=== PATIENT | male | born 1960 | race Caucasian/White ===

== ENCOUNTER 2016-05-16 14:42 | Emergency (ER) | payer MEDICAID, OTHER ==
[~2016-05-16] VITALS: Ht 177.8 cm; Wt 85.3 kg
[~2016-05-16 14:42] MED LIST: BACTRIM DS TAB1 EAC1 ORAL; IMODIUM2 MG ORAL; METOPROLOL TART50 MG PO; NORCO 10/3251 EA ORAL; PERPHENAZINE2 MG PO; PLAVIX75 MG ORAL; SIMVASTATIN40 MG PO
[2016-05-16] MEDS ORDERED: ZOCOR5 MG ORAL (15:07)
[2016-05-16] MEDS ORDERED: GLIPIZIDE XL10 MG ORAL (15:07)
[2016-05-16] MEDS ORDERED: METFORMIN HCL500 M1 ORAL (15:07)
[2016-05-16] MEDS ORDERED: FOLIC ACID1 MG ORAL (15:08)
[2016-05-16] MEDS ORDERED: PREDNISONE20 M1 PO (15:08)
[2016-05-16] MEDS ORDERED: PLAQUENIL200 MG ORAL (15:08)
[2016-05-16] MEDS ORDERED: METHOTREXATE2.5 MG PO (15:08)
[2016-05-16] MEDS ORDERED: PLAVIX75 MG ORAL (15:09)
[2016-05-16] MEDS ORDERED: LOPRESSOR HCT1 EAC3 ORAL (15:09)
[2016-05-16 15:14] VITALS: BP 148/79
[2016-05-16 16:20] LABS: BASOPHILS % (AUTO) 0.8 % (0.0-2.0); EOSINOPHILS % (AUTO) 1.9 % (0.0-3.0); LYMPHOCYTES % (AUTO) 18.7 % (20.0-45.0); MEAN CORPUSCULAR HGB CONC 32.6 G/DL (32.0-36.0); MEAN CORPUSCULAR VOLUME 98 FL (80-99); MEAN PLATELET VOLUME 6.7 FL (6.5-10.1); MONOCYTES % (AUTO) 5.9 % (1.0-10.0); NEUTROPHILS % (AUTO) 72.7 % (45.0-75.0); PLATELET COUNT 313 K/UL (150-450); WHITE BLOOD COUNT 10.1 K/UL (4.8-10.8)
[2016-05-16 16:27] LABS: ALANINE AMINOTRANSFERASE 21 U/L (3-41); ALBUMIN/GLOBULIN RATIO 1.4 (1.0-2.7); ANION GAP 17 (5-15); ASPARTATE AMINO TRANSFERASE 15 U/L (5-40); CALCIUM 9.1 mg/dL (8.6-10.2); CARBON DIOXIDE 21 mEQ/L (20-30); CHLORIDE 101 mEQ/L (98-107); CREATININE 0.9 mg/dL (0.7-1.2); GLOMERULAR FILTRATION RATE > 60 mL/min (>60); HEMOLYSIS 8; LIPASE 58 U/L (< 60); POTASSIUM 4.4 mEQ/L (3.4-4.9); SODIUM 139 mEQ/L (135-145); TOTAL PROTEIN 7.1 g/dL (6.6-8.7)
--- NOTE | 2016-05-16 16:30 | Emergency Room Report ---
History of Present Illness General Chief Complaint: General Complaint Source: Patient Present Illness HPI 56-year-old male presents emergency department complaining of black stool x2 weeks in addition to burning epigastric sensation after eating food. Patient denies pain or burning sensation at times other than eating. Patient denies nausea, vomiting, fevers, chills patient denies bright red blood in the stool patient reports mild straining however has a bowel movement daily. he states he 's been taking Pepto-Bismol for a little of it 2 weeks to manage his symptoms. Patient denies taking other medications for burning sensation. Patient states he has had intermittent acid reflux in the past however has never lasted this long. Patient denies chest pain or weakness. Patient reported short episode of dizziness today after straining to use the restroom. Patient states it resolved after 10 seconds denies fall or loss of consciousness. he denies abdominal distention. Patient reports cigarette use denies alcohol or illicit drugs. Denies CP, Palpitations, LOC, AMS, dizziness, Changes in Vision, Sensation, paresthesias, or a sudden severe headache. Allergies: Coded Allergies: No Known Allergies (Unverified , 01/07/12) Patient History Past Medical History: see triage record Past Surgical History: none Pertinent Family History: none Immunizations: UTD Reviewed Nursing Documentation: PMH: Agreed, PSxH: Agreed Nursing Documentation-PMH Past Medical History: No History, Except For Hx Cardiac Problems: Yes - Rheumatoid arthritis Hx Hypertension: Yes Hx Diabetes: Yes History Of Psychiatric Problem: Yes - Depression, Anxiety, Psychosis Review of Systems All Other Systems: negative except mentioned in HPI Physical Exam Vital Signs Date Time Temp Pulse Resp B/P Pulse Ox O2 Delivery O2 Flow Rate FiO2 05/16/16 15:00 98.1 95 14 153/81 97 Room Air Sp02 EP Interpretation: reviewed, normal General Appearance: no apparent distress, alert, GCS 15, non-toxic Head: normocephalic, atraumatic Eyes: bilateral eye PERRL, bilateral eye normal inspection ENT: hearing grossly normal, normal pharynx, no angioedema, normal voice Neck: full range of motion, supple/symm/no masses Respiratory: chest non-tender, lungs clear, normal breath sounds, speaking full sentences Cardiovascular #1: regular rate, rhythm, no edema Gastrointestinal: normal bowel sounds, non tender, soft, non-distended, no guarding, no rebound Rectal: deferred, other - refused FOB exam Genitourinary: normal inspection, no CVA tenderness Musculoskeletal: back normal, gait/station normal, normal range of motion, non- tender, no calf tenderness Neurologic: alert, oriented x3, responsive, motor strength/tone normal, sensory intact, speech normal Psychiatric: judgement/insight normal, memory normal, mood/affect normal, no suicidal/homicidal ideation Skin: normal color, no rash, warm/dry, well hydrated Lymphatic: no adenopathy Medical Decision Making PA Attestation Dr. Kamara is my supervising Physician whom patient management has been discussed with. Diagnostic Impression: Primary Impression: GERD (gastroesophageal reflux disease) Qualified Codes: K21.9 - Gastro-esophageal reflux disease without esophagitis ER Course Pt. presents to the ED c/o black stools x 2 weeks s/p taking pepto bismol multiple times daily to subside burning sensation brought on with meals. Ddx considered but are not limited to GERD, Diverticulitis, acute appy, diarrhea ,UC, PUD, GE, pancreatitis, gallstone, Cardiac/LA Vital signs: are WNL, pt. is afebrile H&PE are most consistent with GERD/ Ulcer ORDERS: -CBC, CMP, lipase: WNL / unremarkable: No elevations in liver or pancreatic enzymes no evidence of acute blood loss.I do not suspect Cardiac pathology at this time due to HPI, and pt.s PE non tachycardic, non-tachypneic, NAD. ED INTERVENTIONS: - zantac 150mg -Discussed with this patient that I do not suspect acute GI bleed at this time based on laboratory work in addition to history of present illness discussed with patient that side effect of Pepto-Bismol is dark colored stools and that he can find this information written on the bottle. -D/w patient that I believe he is stable for close outpatient followup and should make an appointment with his primary care provider who can evaluate him fully or just medications as needed may require GI specialist evaluation. DISCHARGE: At this time pt. is stable for d/c to home. Will provide printed patient care instructions, and any necessary prescriptions. Care plan and follow up instructions have been discussed with the patient prior to discharge. Labs Test 05/16/16 15:45 White Blood Count 10.1 K/UL (4.8-10.8) Red Blood Count 4.80 M/UL (4.70-6.10) Hemoglobin 15.3 G/DL (14.2-18.0) Hematocrit 47.1 % (42.0-52.0) Mean Corpuscular Volume 98 FL (80-99) Mean Corpuscular Hemoglobin 32.0 PG (27.0-31.0) Mean Corpuscular Hemoglobin Concent 32.6 G/DL (32.0-36.0) Red Cell Distribution Width 15.0 % (11.6-14.8) Platelet Count 313 K/UL (150-450) Mean Platelet Volume 6.7 FL (6.5-10.1) Neutrophils (%) (Auto) 72.7 % (45.0-75.0) Lymphocytes (%) (Auto) 18.7 % (20.0-45.0) Monocytes (%) (Auto) 5.9 % (1.0-10.0) Eosinophils (%) (Auto) 1.9 % (0.0-3.0) Basophils (%) (Auto) 0.8 % (0.0-2.0) Sodium Level 139 mEQ/L (135-145) Potassium Level 4.4 mEQ/L (3.4-4.9) Chloride Level 101 mEQ/L (98-107) Carbon Dioxide Level 21 mEQ/L (20-30) Anion Gap 17 (5-15) Blood Urea Nitrogen 19 mg/dL (7-23) Creatinine 0.9 mg/dL (0.7-1.2) Estimat Glomerular Filtration Rate > 60 mL/min (>60) Glucose Level 242 mg/dL (74-106) Calcium Level 9.1 mg/dL (8.6-10.2) Total Bilirubin 0.2 mg/dL (0.0-1.2) Aspartate Amino Transf (AST/SGOT) 15 U/L (5-40) Alanine Aminotransferase (ALT/SGPT) 21 U/L (3-41) Alkaline Phosphatase 98 U/L (40-129) Total Protein 7.1 g/dL (6.6-8.7) Albumin 4.2 g/dL (3.5-5.2) Globulin 2.9 g/dL Albumin/Globulin Ratio 1.4 (1.0-2.7) Lipase 58 U/L (< 60) Last Vital Signs Date Time Temp Pulse Resp B/P Pulse Ox O2 Delivery O2 Flow Rate FiO2 05/16/16 15:14 98.2 97 13 148/79 98 Room Air Disposition: HOME, SELF-CARE Condition: Stable Scripts Ranitidine Hcl* (ZANTAC*) 150 Mg Tablet 150 MG ORAL TWICE A DAY for 30 Days, #60 TAB Prov: Kelly Quintanilla 05/16/16 Referrals: [facility],REFERRING (PCP) Patient Instructions: Gastroesophageal Reflux Disease, Adult Additional Instructions: Take medications as directed. Follow up with PCP in 3-5 days Return sooner to ED if new symptoms occur, or current symptoms become worse. Kelly Quintanilla May 16, 2016 16:30
[2016-05-16] MEDS ORDERED: ZANTAC150 MG ORAL (16:31)
[2016-05-16 16:51] VITALS: BP_SYST 146; BP_SYST 148; BP_DIAS 79; BP_DIAS 82
== END 2016-05-16 16:52 | disposition home or self-care (01) ==
LOC: EMR 15:37
DX: K21.9 Gastro-esophageal reflux disease without esophagitis (principal); R19.5 Other fecal abnormalities; E11.9 Type 2 diabetes mellitus without complications; I10 Essential (primary) hypertension; M06.9 Rheumatoid arthritis, unspecified; F32.9 Major depressive disorder, single episode, unspecified; F41.9 Anxiety disorder, unspecified; F29 Unspecified psychosis not due to a substance or known physiological condition
CPT/HCPCS: 36415; 80053; 83690; 85025; 99283

== ENCOUNTER 2016-09-19 17:08 | Emergency (ER) | payer OTHER ==
[~2016-09-19] VITALS: Ht 180.3 cm; Wt 83.9 kg
[~2016-09-19 17:08] MED LIST changes: +FOLIC ACID1 MG ORAL; +GLIPIZIDE XL10 MG ORAL; +LOPRESSOR HCT1 EAC3 ORAL; +METFORMIN HCL500 M1 ORAL; +METHOTREXATE2.5 MG PO; +PLAQUENIL200 MG ORAL; +PREDNISONE20 M1 PO; +ZANTAC150 MG ORAL; +ZOCOR5 MG ORAL
[2016-09-19 17:19] VITALS: BP 112/62
[2016-09-19] MEDS ORDERED: ROBAXIN-750750 MG PO (17:33)
[2016-09-19] MEDS ORDERED: IBUPROFEN600 MG ORAL (17:33)
[2016-09-19 18:04] VITALS: BP 103/72
--- NOTE | 2016-09-19 20:54 | Emergency Room Report ---
History of Present Illness General Chief Complaint: Pain Source: Patient Present Illness HPI The patient is a 56 old male presenting with left groin pain x 5 days. He states pain is an 8/10 dull ache and does not radiate. Pain worse with movement of the leg. Denies any known injury. He denies any previous injury. he has not tried any medications. He denies any other symptoms including nausea , vomiting, fever, chills, dysuria, penile discharge, testicular pain, rash, diarrhea, constipation, abdominal pain, numbness or tingling Allergies: Coded Allergies: No Known Allergies (Unverified , 01/07/12) Patient History Past Medical History: see triage record Pertinent Family History: none Reviewed Nursing Documentation: PMH: Agreed, PSxH: Agreed Nursing Documentation-PMH Hx Cardiac Problems: Yes - Rheumatoid arthritis Hx Hypertension: Yes Hx Diabetes: Yes Review of Systems All Other Systems: negative except mentioned in HPI Physical Exam Vital Signs Date Time Temp Pulse Resp B/P Pulse Ox O2 Delivery O2 Flow Rate FiO2 09/19/16 17:12 97.9 85 17 82/58 99 Room Air Sp02 EP Interpretation: reviewed, normal General Appearance: no apparent distress, alert, GCS 15, non-toxic Head: normocephalic, atraumatic Eyes: bilateral eye PERRL, bilateral eye normal inspection ENT: hearing grossly normal, normal pharynx, no angioedema, normal voice Gastrointestinal: normal bowel sounds, non tender, soft, non-distended, no guarding, no rebound Genitourinary: normal inspection, no CVA tenderness Musculoskeletal: normal inspection, back normal, normal range of motion, tender - TTP over the L inguinal region Neurologic: alert, oriented x3, responsive, motor strength/tone normal, sensory intact, speech normal Psychiatric: judgement/insight normal, memory normal, mood/affect normal, no suicidal/homicidal ideation Skin: normal color, no rash, warm/dry, well hydrated Lymphatic: no adenopathy Medical Decision Making PA Attestation Dr. Kamara is my supervising physician. Patient management was discussed with my supervising physician Diagnostic Impression: Primary Impression: Strain of left inguinal muscle Qualified Codes: S39.013A - Strain of muscle, fascia and tendon of pelvis, initial encounter ER Course The patient is a 56 old male presenting with left groin pain x 5 days Differential diagnoses considered but not limited to: Muscle strain, fracture, anemia, abscess, among others Physical exam: No apparent distress Abdomen is soft and nontender. Normal bowel sounds. Nondistended There is tenderness to palpation over the left inguinal region only. No edema or erythema. Full active range of motion of the hip. Normal gait unremarkable The patient will be discharged home is given a prescription for Motrin and Robaxin. ER precautions given Last Vital Signs Date Time Temp Pulse Resp B/P Pulse Ox O2 Delivery O2 Flow Rate FiO2 09/19/16 18:04 82 16 103/72 98 Room Air 09/19/16 17:12 97.9 Status: improved Disposition: HOME, SELF-CARE Condition: Improved Scripts Methocarbamol* (ROBAXIN-750*) 750 Mg Tablet 750 MG PO TID, #21 TAB 0 Refills Prov: SOLEDAD VARELA 09/19/16 Ibuprofen* (MOTRIN*) 600 Mg Tablet 600 MG ORAL Q8H Y for For Pain, #30 TAB 0 Refills Prov: SOLEDAD VARELA 09/19/16 Referrals: [facility],REFERRING (PCP) Patient Instructions: Muscle Strain Additional Instructions: I discussed my findings with the patient. All questions and concerns have been answered. Treatment and medication compliance have been addressed. I advised the patient that they need to follow up with PMD in 3-5 days. Return to ED if pain remains or worsens, numbness or tingling occurs, new rash is noticed, fever is noticed, or if needed for any reason. Patient verbalized understanding of discharge instructions. SOLEDAD VARELA September 19, 2016 20:53
== END 2016-09-19 18:09 | disposition home or self-care (01) ==
LOC: EMR 17:33
DX: S39.011A Strain of muscle, fascia and tendon of abdomen, initial encounter (principal); X58.XXXA Exposure to other specified factors, initial encounter; Y92.89 Other specified places as the place of occurrence of the external cause; E11.9 Type 2 diabetes mellitus without complications; I10 Essential (primary) hypertension; M06.9 Rheumatoid arthritis, unspecified
CPT/HCPCS: 99284

== ENCOUNTER 2017-07-06 18:25 | Emergency (ER) | payer OTHER ==
[~2017-07-06] VITALS: Ht 180.3 cm; Wt 81.6 kg
[~2017-07-06 18:25] MED LIST changes: +IBUPROFEN600 MG ORAL; +ROBAXIN-750750 MG PO
[2017-07-06 18:49] VITALS: BP 108/72
--- NOTE | 2017-07-06 19:12 | Emergency Room Report ---
History of Present Illness General Chief Complaint: General Complaint Source: Patient, Medical Record Present Illness HPI 57-year-old male presents to the emergency department complaining of 10 out of 10 in severity lateral right knee pain progressive 3 days. Patient reports he has been taking 800 mg Motrin without relief of his symptoms. Patient reports history of rheumatoid arthritis she denies trauma or fall he also denies instability of the leg. Patient reports the pain is exacerbated upon weight- bearing and palpation of the lateral aspect of his knee. Patient denies fevers , chills, swelling, erythema or recent open wounds. Denies numbness tingling or loss of sensation or gross motor movements of the extremities, incontinence of bowel or bladder. Denies CP, Palpitations, LOC, AMS, dizziness, Changes in Vision, Sensation, paresthesias, or a sudden severe headache. Allergies: Coded Allergies: No Known Allergies (Unverified , 01/07/12) Patient History Past Medical History: see triage record Past Surgical History: none Pertinent Family History: none Immunizations: UTD Reviewed Nursing Documentation: PMH: Agreed, PSxH: Agreed Nursing Documentation-PMH Past Medical History: No History, Except For Hx Cardiac Problems: Yes - Rheumatoid arthritis Hx Hypertension: Yes Hx Pacemaker: No Hx Asthma: No Hx COPD: No Hx Diabetes: Yes Hx Cancer: No Hx Gastrointestinal Problems: Yes Hx Dialysis: No History Of Psychiatric Problem: Yes - Depression, anxiety Hx Neurological Problems: No Hx Cerebrovascular Accident: No Hx Seizures: No Review of Systems All Other Systems: negative except mentioned in HPI Physical Exam Vital Signs Date Time Temp Pulse Resp B/P (MAP) Pulse Ox O2 Delivery O2 Flow Rate FiO2 07/06/17 18:49 98.3 80 16 108/72 98 Room Air 98.2 Sp02 EP Interpretation: reviewed, normal General Appearance: no apparent distress, alert, GCS 15, non-toxic Head: normocephalic, atraumatic ENT: hearing grossly normal, normal voice Neck: full range of motion Respiratory: lungs clear, normal breath sounds, speaking full sentences Cardiovascular #1: regular rate, rhythm, normal capillary refill Musculoskeletal: back normal, gait/station normal, normal range of motion, other - no increased laxity upon varus or valgus stressing, negative anterior and posterior drawer signs, tender - anteriolateral right knee TTP, no swelling , no pulsatile masses, no obvious deformity Neurologic: alert, oriented x3, responsive, motor strength/tone normal, sensory intact, speech normal, grossly normal Psychiatric: judgement/insight normal Skin: normal color, no rash, warm/dry, well hydrated Medical Decision Making PA Attestation Dr. La is my supervising Physician whom patient management has been discussed with. Diagnostic Impression: Primary Impression: Knee pain, acute Qualified Codes: M25.561 - Pain in right knee ER Course 57-year-old male presents to the emergency department complaining of 10 out of 10 in severity lateral right knee pain progressive 3 days. Patient reports he has been taking 800 mg Motrin without relief of his symptoms. Patient reports history of rheumatoid arthritis she denies trauma or fall he also denies instability of the leg. Patient reports the pain is exacerbated upon weight- bearing and palpation of the lateral aspect of his knee. Patient denies fevers , chills, swelling, erythema or recent open wounds. Denies numbness tingling or loss of sensation or gross motor movements of the extremities, incontinence of bowel or bladder. Denies CP, Palpitations, LOC, AMS, dizziness, Changes in Vision, Sensation, paresthesias, or a sudden severe headache. Ddx considered but are not limited to Fracture, dislocation, contusion, Sprain/ Strain/Spasm. Vital signs: are WNL, pt. is afebrile H&PE are most consistent with musculoskeletal injury will perform imaging to r/ o fractures/dislocations. ORDERS: - X-ray : Right Knee- Unremarkable ED INTERVENTIONS: - [place] PO d/w pt. conservative treatment that most likely he may need orthopedic follow up and MRI if his symptoms persist. d/w pt PMD follow up. DISCHARGE: At this time pt. is stable for d/c to home. Will provide printed patient care instructions, and any necessary prescriptions. Care plan and follow up instructions have been discussed with the patient prior to discharge. Other X-Ray Diagnostic Results Other X-Ray Diagnostic Results : X-Ray ordered: Right KNee # of Views/Limited Vs Complete: 3 View Indication: Pain EP Interpretation: Yes PA Xray: Interpretation reviewed, by supervising MD, and agrees with findings. Interpretation: no dislocation, no soft tissue swelling, no fractures Impression: No acute disease Electronically Signed by: Kelly Quintanilla PA-C Last Vital Signs Date Time Temp Pulse Resp B/P (MAP) Pulse Ox O2 Delivery O2 Flow Rate FiO2 3/17/18 18:49 98.3 80 16 108/72 98 Room Air 98.2 Disposition: HOME, SELF-CARE Condition: Stable Scripts Acetaminophen With Codeine (T#3) (TYLENOL #3 TAB*) Y Tab 1 TAB ORAL Q6HR Y for For Pain, #6 TAB Prov: Kelly Quintanilla 07/06/17 Patient Instructions: Knee Pain Additional Instructions: Take medications as directed. Follow up with a Primary Care Provider in 3-5 days, even if your symptoms have resolved. -- IF your symptoms persist, orthopedic evaluation and MRI consideration is recommended. Return sooner to ED if new symptoms occur, or current symptoms become worse. Do not drink alcohol, drive, or operate heavy machinery while taking Tylenol # 3 as this may cause drowsiness. - Please note that this Emergency Department Report was dictated using [employer] actor technology software, occasionally this can lead to erroneous entry secondary to interpretation by the dictation equipment. Kelly Quintanilla Jul 06, 2017 19:11
[2017-07-06] MEDS ORDERED: HYDROcodone/Acetamin 7.5/325 tab ORAL ONE (19:15)
[2017-07-06] MEDS ORDERED: ACETAMINOPHEN-1 EAC1 ORAL (20:04)
[2017-07-06 20:27] VITALS: BP 108/72
--- NOTE | 2017-07-07 11:44 | Diagnostic Imaging Report ---
Indication: Pain Technique: XRAY Knee 3v R Comparison: None Findings: No acute fracture is identified. There is no evidence of dislocation. Mild degenerative change with mild medial compartment joint space narrowing. No suprapatellar joint effusion. No radiopaque foreign body seen. Atherosclerotic vascular calcifications noted. Impression: No evidence of acute fracture or dislocation.
== END 2017-07-06 20:27 | disposition home or self-care (01) ==
LOC: EMR 19:00
DX: M25.561 Pain in right knee (principal); F32.9 Major depressive disorder, single episode, unspecified; F41.9 Anxiety disorder, unspecified; E11.9 Type 2 diabetes mellitus without complications; M06.9 Rheumatoid arthritis, unspecified
CPT/HCPCS: 99283

== ENCOUNTER 2017-07-12 12:59 | Emergency (ER) | payer OTHER ==
[~2017-07-12] VITALS: Ht 172.7 cm; Wt 72.6 kg
[~2017-07-12 12:59] MED LIST changes: +ACETAMINOPHEN-1 EAC1 ORAL
[2017-07-12 13:05] VITALS: BP 112/79
--- NOTE | 2017-07-12 13:24 | Emergency Room Report ---
History of Present Illness General Chief Complaint: Pain Source: Patient, Medical Record Present Illness HPI 57 yo male patient presents to ER complaining of right knee pain. Reports was referred to ER by physician for "emergency MRI". Patient reports pain with movement for 2 weeks. Denies recent injury since that time. Reports walked into ER unassisted. Reports took Tylenol#3 following ER visit, reports took all medication provided that same day. Reports Xray taken at that time showing no fracture or dislocation. Reports seen by PCP and prescribed [place], reports he still has some remaining pills. Requesting more and stronger pain medication. Denies fever, chest pain, SOB. Allergies: Coded Allergies: No Known Allergies (Unverified , 01/07/12) Patient History Past Medical History: see triage record Reviewed Nursing Documentation: PMH: Agreed; PSxH: Agreed Nursing Documentation-PMH Past Medical History: No History, Except For Hx Cardiac Problems: Yes - Rheumatoid arthritis Hx Hypertension: Yes Hx Pacemaker: No Hx Asthma: No Hx COPD: No Hx Diabetes: Yes Hx Cancer: No Hx Gastrointestinal Problems: Yes Hx Dialysis: No Hx Neurological Problems: No Hx Cerebrovascular Accident: No Hx Seizures: No Review of Systems All Other Systems: negative except mentioned in HPI Physical Exam Vital Signs Date Time Temp Pulse Resp B/P (MAP) Pulse Ox O2 Delivery O2 Flow Rate FiO2 07/12/17 13:05 98.0 97 18 112/79 97 Room Air 98.1 Sp02 EP Interpretation: reviewed, normal General Appearance: well appearing, no apparent distress, alert, GCS 15, non- toxic Head: normocephalic, atraumatic Eyes: bilateral eye normal inspection, bilateral eye PERRL ENT: hearing grossly normal, normal pharynx, no angioedema, normal voice, uvula midline, moist mucus membranes Neck: full range of motion Respiratory: lungs clear, normal breath sounds, no rhonchi, no respiratory distress, no accessory muscle use, no wheezing, speaking full sentences Cardiovascular #1: regular rate, rhythm, no edema Genitourinary: no CVA tenderness Musculoskeletal: back normal, digits/nails normal, gait/station normal, normal range of motion, no calf tenderness, other - NVI, negative anterior and posterior drawer test, no laxity wtih varus and valgus stress, no warmth to touch, no deformity, no ecchymosis, no ededma, tender - anterior lateral right knee Neurologic: alert, oriented x3, responsive, motor strength/tone normal, sensory intact Psychiatric: mood/affect normal Skin: no rash Lymphatic: no adenopathy Medical Decision Making PA Attestation Dr. Lacy is my supervising Physician whom patient management has been discussed with. Diagnostic Impression: Primary Impression: Knee pain ER Course Pt. presents to the ED c/o knee pain. Ddx considered but are not limited to fracture, sprain, strain, contusion, dislocation. Vital signs: are WNL, pt. is afebrile ER COURSE Xray reviewed from previous visit, no acute disease. No acute trauma since that time. Does not require repeat imaging at this time. PE consistent with previous visit, no warmth to palpation, no fever, low suspicion for septic joint. No joint laxity, full ROM, able to ambulate. TTP of lateral right knee. No bony deformity, no swelling, no ecchymosis, low suspicion for dislocation. Patient began to negotiate for pain mediation. Reports Tylenol #3 given at previous visit are "crap" for his pain. Informed patient will not provide him with further opioid pain medication. Informed patient needs to discuss pain medication with primary care provider. Patient began to argue that his pain is not resolved and needs pain medication for 2-3 weeks until he gets to his ER. States his primary care provider will not prescribe more medication because "he is too scared". Reports he is not drug seeking but needs more pain relief and reason why pain has not gone away. Informed patient will negotiate pain medication, will not provide further opioid pain medication, prescription will provide Toradol in ER and rx for Ibuprofen for home. Informed patient if he wanted to refuse medication he was allowed to. Patient agreed to Toradol injection for pain. Informed patient to take medication at dosage instructed by prescribing provider , do not increase dosage of medication without discuss with provider. Toradol provided in ER. Patient ready for discharge. DISCHARGE: -Rx provided for Tylenol for pain symptoms. At this time pt. is stable for d/c to home. Patient is resting comfortably, in no acute distress, nontoxic appearing, talking without difficulty. Will provide printed patient care instructions, and any necessary prescriptions. Patient instructed to follow with primary care provider in 3 - 5 days and to request further orthopedic follow-up. Care plan and follow up instructions have been discussed with the patient prior to discharge. Patient instructed on RICE method: rest, ice, compression, elevation. Patient instructed to WBAT. Take medications as directed. Patient questions asked and answered. Patient reports understanding and agreement to treatment plan. ER precautions given, patient instructed to return to ER immediately for any new or worsening of symptoms. Last Vital Signs Date Time Temp Pulse Resp B/P (MAP) Pulse Ox O2 Delivery O2 Flow Rate FiO2 07/12/17 13:05 98.0 97 18 112/79 97 Room Air 98.0 Disposition: HOME, SELF-CARE Condition: Stable Scripts Ibuprofen* (MOTRIN*) 600 Mg Tablet 600 MG ORAL Q6H PRN for For Pain, #30 TAB Prov: Prince Munguia 07/12/17 Patient Instructions: Knee Pain, [id number] Additional Instructions: Patient instructed to follow up with primary care provider for pain medication and MRI. Followup with ortho. Patient instructed on RICE method: rest, ice, compression, elevation. Patient instructed to WBAT. Take medications as directed. Patient questions asked and answered. ER precautions given, patient instructed to return to ER immediately for any new or worsening of symptoms. Prince Munguia Jul 12, 2017 13:24
[2017-07-12] MEDS ORDERED: IBUPROFEN600 MG ORAL (13:42)
[2017-07-12] MEDS ORDERED: Ketorolac 30mg Inj IM ONE (13:45)
[2017-07-12 14:03] VITALS: BP 112/79
== END 2017-07-12 14:03 | disposition home or self-care (01) ==
LOC: EMR 13:29
DX: M25.561 Pain in right knee (principal); M06.9 Rheumatoid arthritis, unspecified; I10 Essential (primary) hypertension; E11.9 Type 2 diabetes mellitus without complications
CPT/HCPCS: 96372; 99283; J1885

== ENCOUNTER 2018-09-11 11:51 | Emergency (ER) | payer OTHER ==
[~2018-09-11] VITALS: Ht 180.3 cm; Wt 79.4 kg
[2018-09-11 12:20] VITALS: BP 131/77
[2018-09-11] MEDS ORDERED: Methocarbamol 750mg tab ORAL ONE (12:30)
[2018-09-11] MEDS ORDERED: Acetaminophen 500mg (ES) tab ORAL ONE (12:30)
[2018-09-11] MEDS ORDERED: LIDODERM700 M1 TOPIC (12:49)
[2018-09-11] MEDS ORDERED: ROBAXIN-750750 MG PO (12:49)
[2018-09-11] MEDS ORDERED: TYLENOL EXTRA500 MG ORAL (12:49)
[2018-09-11 13:00] VITALS: BP 125/78
--- NOTE | 2018-09-13 14:49 | Emergency Room Report ---
History of Present Illness General Chief Complaint: Pain Source: Patient Present Illness HPI 58-year-old male presents ED for evaluation. Complaining of left sided rib pain for the last 3 days. Denies any fall or injury. Pain is left-sided, sharp , 9 out of 10, nonradiating. Worse with twisting and bending. Denies chest pain or shortness of breath. No other aggravating relieving factors. Denies any other associated symptoms Allergies: Coded Allergies: No Known Allergies (Unverified , 01/07/12) Patient History Past Medical History: DM, HTN Past Surgical History: none Pertinent Family History: none Social History: Denies: smoking, alcohol use, drug use Immunizations: UTD Reviewed Nursing Documentation: PMH: Agreed; PSxH: Agreed Nursing Documentation-PMH Past Medical History: No History, Except For Hx Cardiac Problems: Yes - unknown specifics, arthritis Hx Hypertension: Yes Hx Pacemaker: No Hx Asthma: No Hx COPD: No Hx Diabetes: Yes Hx Cancer: No Hx Gastrointestinal Problems: Yes Hx Dialysis: No Hx Neurological Problems: No Hx Cerebrovascular Accident: No Hx Seizures: No Review of Systems All Other Systems: negative except mentioned in HPI Physical Exam Vital Signs Date Time Temp Pulse Resp B/P (MAP) Pulse Ox O2 Delivery O2 Flow Rate FiO2 09/11/18 11:52 97.9 97 20 131/77 (95) 97 Room Air Sp02 EP Interpretation: reviewed, normal General Appearance: no apparent distress, alert, GCS 15, non-toxic Head: normocephalic Eyes: bilateral eye normal inspection, bilateral eye PERRL ENT: normal ENT inspection Neck: normal inspection Respiratory: lungs clear, normal breath sounds, other - L lower rib pain reproducible Cardiovascular #1: normal inspection Gastrointestinal: normal inspection Rectal: deferred Genitourinary: no CVA tenderness Musculoskeletal: normal inspection Neurologic: alert, oriented x3, responsive, motor strength/tone normal, sensory intact, speech normal Psychiatric: normal inspection Skin: normal inspection Lymphatic: normal inspection Medical Decision Making Diagnostic Impression: Primary Impression: Chest wall pain ER Course Hospital Course 58-year-old male presents ED complaining of reproducible chest wall pain Differential diagnoses include: Rib fracture, MN/unstable angina, contusion, muscle strain Clinical course Patient placed on stretcher. After initial history, physical exam reveals middle-aged male in no acute distress. On exam there is some left-sided midaxillary reproducible pain. No crepitus or bruising. Lungs clear. Normal breath sounds. Vital stable. clinical findings consistent with muscle strain/costochondritis. Reassurance given. Patient given pain meds. On reassessment symptoms improved. Discussed findings with patient. Safe for discharge close outpatient follow-up. Does not have a PMD. We'll provide referrals I. I feel this is a highly complex case requiring extensive working including EKG/Rhythm strip, Xray/CT/US, Blood/urine lab work, repeat exams while in ED, and administration of strong opiates/narcotics for pain control, admission to hospital or close patient follow up. Diagnosis - chest wall pain Stable and discharged to home with prescription for Tylenol, robaxin, lidoderm. Instructed to followup with PMD. Return to ED if symptoms recur or worsen my chest wall pain shortness Last Vital Signs Date Time Temp Pulse Resp B/P (MAP) Pulse Ox O2 Delivery O2 Flow Rate FiO2 09/11/18 13:00 98.0 88 16 125/78 98 09/11/18 12:20 Room Air Status: improved Disposition: HOME, SELF-CARE Condition: Stable Scripts Lidocaine (Lidoderm) 1 Each Adh..patch 1 PATCH TOPIC DAILY, #7 PATCH 0 Refills Patch(es) may remain in place for up to 12 hours in any 24-hour period. Prov: Fabian Paredes MD 09/11/18 Methocarbamol* (ROBAXIN-750*) 750 Mg Tablet 750 MG PO TID, #21 TAB 0 Refills Prov: Fabian Paredes MD 09/11/18 Acetaminophen* (TYLENOL EXTRA STRENGTH*) 500 Mg Tablet 500 MG ORAL Q8H PRN for Prn Headache/Temp > 101, #30 TAB 0 Refills Prov: Fabian Paredes MD 09/11/18 Referrals: [facility],REFERRING (PCP) [facility] Patient Instructions: Chest Wall Pain, [id number] Fabian Paredes MD September 13, 2018 14:49
== END 2018-09-11 13:00 | disposition home or self-care (01) ==
LOC: EMR 12:50
DX: R07.89 Other chest pain (principal); I10 Essential (primary) hypertension; E11.9 Type 2 diabetes mellitus without complications
CPT/HCPCS: 99282